=== PATIENT | male | born 1980 | race African-American/Black ===

== ENCOUNTER 2018-08-22 18:18 | Emergency (ER) | payer MEDICAID ==
[~2018-08-22] VITALS: Ht 190.5 cm; Wt 158.8 kg
[2018-08-22 18:30] VITALS: BP 155/94
--- NOTE | 2018-08-22 18:42 | NUR ---
PATIENT AMBULATED TO BED 9 AT THIS TIME.
--- NOTE | 2018-08-22 18:45 | NUR ---
38 M PT BIB SELF FOR INCREASED BILAT LE SWELLING X 8 MONTHS, CAP < 3 SECONDS, +PULSES. INGROWN HAIR ON SCALP X 5 YEARS, SMALL, ROUND, RASIED, BUMP NOTED. AND LUMP ON L UPPER SHOULDER X 10 YEARS. PER PATIENT, BOTH WOUNDS WERE DRAINED EARLIER TODAY. PT REPORTS FOULD SMELLING DRAINAGE FROM WOUND ON SCALP AND SHOULDER. NO DISCHARGE NOTED AT THIS TIME. DENIES ANY INJURY. PT STATES NO PAIN AT THIS TIME.
[2018-08-22 19:09] LABS: BASOPHILS # (AUTO) 0.1 K/uL (0.00-0.22); BASOPHILS % (AUTO) 0.8 % (0.0-2.0); EOSINOPHILS # (AUTO) 0.2 K/uL (0-0.4); EOSINOPHILS % (AUTO) 2.2 % (0.0-4.0); LYMPHOCYTES # (AUTO) 1.8 K/uL (2.0-11.5); LYMPHOCYTES % (AUTO) 21.4 % (20.5-51.1); MEAN CORPUSCULAR HEMOGLOBIN 29 pg (27-31); MEAN CORPUSCULAR HGB CONC 34 g/dL (33-37); MEAN CORPUSCULAR VOLUME 83.7 fL (80-94); MONOCYTES # (AUTO) 0.6 K/uL (0.8-1.0); MONOCYTES % (AUTO) 7.2 % (1.7-9.3); NEUTROPHILS # (AUTO) 5.6 K/uL (1.8-7.7); NEUTROPHILS % (AUTO) 68.4 % (42.2-75.2); PLATELET COUNT (AUTO) 258 K/uL (140-450); RED BLOOD CELL COUNT(AUTO) 4.91 MIL/uL (4.20-6.10); RED CELL DISTRIBUTION WIDTH 16.7 % (11.6-13.7); WHITE BLOOD COUNT (AUTO) 8.2 K/uL (4.8-10.8)
--- NOTE | 2018-08-22 19:10 | NUR ---
PT SITTING UP IN BED, VSS.
[2018-08-22 19:11] LABS: APPEARANCE,URINE CLEAR (CLEAR); BILIRUBIN,URINE NEGATIVE (NEGATIVE); BLOOD, URINE NEGATIVE (NEGATIVE); COLOR,URINE YELLOW (YELLOW); LEUKOCYTE ESTERASE ,URINE NEGATIVE (NEGATIVE); NITRITE, URINE NEGATIVE (NEGATIVE); UGLUCOSE NEGATIVE (NEGATIVE)
--- NOTE | 2018-08-22 19:15 | NUR ---
RECIEVED REPORT FROM RODY BOOTH. PT VSS.
[2018-08-22 19:31] LABS: ANION GAP 12.1 (8-16); CARBON DIOXIDE 28.7 mmol/L (21-32); CREATININE 1.3 mg/dL (0.7-1.3); POTASSIUM 3.8 mmol/L (3.5-5.1)
[2018-08-22 19:37] LABS: ALBUMIN 3.4 g/dL (3.4-5.0); TOTAL BILIRUBIN 0.3 mg/dL (0.0-1.0)
[2018-08-22 20:06] VITALS: BP 153/97
== END 2018-08-22 20:06 | disposition home or self-care (01) ==
LOC: MED 18:18
DX: L02.811 Cutaneous abscess of head [any part, except face] (principal); L02.414 Cutaneous abscess of left upper limb; M25.472 Effusion, left ankle; M25.471 Effusion, right ankle
CPT/HCPCS: 36415; 80053; 81003; 85025; 99283